=== PATIENT | female | born 1955 | race Caucasian/White ===

== ENCOUNTER 2023-12-21 14:56 | Inpatient (IN) | payer MEDICARE ==
[2023-12-21 17:11] LABS: BASE EXCESS VENOUS 0.6 (-2.0-3.0); BICARBONATE,VENOUS 25 mEQ/mL (22-28); PCO2 VENOUS 38 mmHG (41-51); PH,VENOUS 7.43 (7.31-7.41)
[2023-12-21 17:14] LABS: BASOPHILS ABSOLUTE AUTO 0.04 K/uL (0.00-0.20); BASOPHILS PERCENT AUTO 0.3 % (0.0-1.0); EOSINOPHILS ABSOLUTE AUTO 0.01 K/uL (0.00-0.45); EOSINOPHILS PERCENT AUTO 0.1 % (0.0-6.0); HEMATOCRIT 32.6 % (37.0-47.0); HEMOGLOBIN 11.7 g/dL (12.0-16.0); IMMATURE GRAN ABSOLUTE AUTO 0.12 K/uL (0.00-0.05); IMMATURE GRAN PERCENT AUTO 0.8 % (0.0-0.4); LYMPHOCYTES ABSOLUTE AUTO 1.42 K/uL (1.00-4.80); LYMPHOCYTES PERCENT AUTO 9.3 % (24.0-44.0); MEAN CORPUSCULAR HGB CONC 35.9 g/dL (32.0-36.0); MEAN CORPUSCULAR VOLUME 86.5 fL (83.0-99.0); MONOCYTES ABSOLUTE AUTO 0.92 K/uL (0.00-0.80); NEUTROPHILS ABSOLUTE AUTO 12.77 K/uL (1.80-7.70); NEUTROPHILS PERCENT AUTO 83.5 % (41.0-71.0); PLATELET COUNT,PLT 224 K/uL (150-400); RED BLOOD CELL COUNT 3.77 M/uL (4.10-5.30); WHITE BLOOD CELL COUNT,WBC 15.28 K/uL (3.9-11.3)
[2023-12-21 17:16] LABS: PO2 VENOUS < 30 mmHG (35-45)
[2023-12-21 17:39] LABS: INR 1.1 (0.86-1.11)
[2023-12-21] MEDS: Sodium Chloride 0.9% 1,000 ML IV ONE ×4 (17:44→23:30)
[2023-12-21] MEDS: cefTRIAXone 1 GM in Sodium Chloride 0.9% 50 ML IV ONE (17:44)
[2023-12-21 17:50] LABS: LACTIC ACID 3.2 mmol/L (0.4-2.0)
[2023-12-21 18:04] LABS: A/G RATIO 0.8 (0.9-1.6); ALANINE AMINOTRANSFERASE,ALT 25 IU/L (14-63); ALBUMIN 3.3 g/dL (3.4-5.0); ALKALINE PHOSPHATASE 84 U/L (46-116); ASPARTATE AMNIOTRANSFERASE,AST 20 IU/L (15-37); BILIRUBIN TOTAL 0.9 mg/dL (0.2-1.0); BLOOD UREA NITROGEN,BUN 32 mg/dL (7.0-18.0); CALCIUM 8.4 mg/dL (8.5-10.1); CARBON DIOXIDE,CO2 25.8 mmol/L (21.0-32.0); CHLORIDE,CL 87 mmol/L (98-107); CREATININE 2.4 mg/dL (0.6-1.0); EST CRCL DRUG DOSING (CG) 19.07 mL/min; GLUCOSE RANDOM 167 mg/dL (74-106); LIPASE 19 U/L (16-77); MAGNESIUM 1.3 mg/dL (1.8-2.4); POTASSIUM,K 3.2 mmol/L (3.5-5.1); PROTEIN TOTAL,TP 7.5 g/dL (6.4-8.2); SODIUM,NA 125 mmol/L (136-145); TSH ULTRASENSITIVE 1.24 uIU/mL (0.36-3.74)
[2023-12-21] MEDS: Lidocaine 1% 2 ML ONE (18:07)
[2023-12-21 18:09] LABS: ESTIMATED GFR 22 mL/min (>60)
[2023-12-21] MEDS: Lactated Ringers 1,000 ML IV STA (18:09)
[2023-12-21] MEDS: Sodium Chloride 0.9% 2.5 ML Syringe FLUSH PRN ×2 (19:22→19:23)
[2023-12-21] MEDS: Sodium Chloride 0.9% 10 ML Syringe FLUSH PRN ×2 (19:22→19:23)
[2023-12-21] MEDS ORDERED: Glucagon,Human Recombinant 1 MG Vial IM PRN (21:44)
[2023-12-21] MEDS ORDERED: 50% Dextrose in Water 50 ML Syringe IVPUSH PRN (21:44)
[2023-12-21] MEDS ORDERED: Cyclobenzaprine 5 MG Tab PO PRN (21:53)
[2023-12-21] MEDS: Sodium Chloride 0.9% 1,000 ML IV SCH (22:08)
[2023-12-21] MEDS: Acetaminophen 650 MG in Premix Bag 1 BAG IV ONE (22:24)
[2023-12-21] MEDS ORDERED: Magnesium Sulfate/Water 2 GM/50 ML Premix Bag IV ONE (22:29)
[2023-12-21] MEDS: Cefepime 2 GM in Sodium Chloride 0.9% 50 ML IV SCH (22:30)
[2023-12-21] MEDS ORDERED: Cefepime 1 GM in Sodium Chloride 0.9% 50 ML IV SCH (22:39)
[2023-12-21] MEDS: VANCOmycin 2 GM/400 ML 2 GM in Premix Bag 1 BAG IV ONE (22:56)
[2023-12-21 23:04] LABS: HEMATOCRIT 30.1 % (37.0-47.0); MEAN CORPUSCULAR HEMOGLOBIN 31.2 pg (28.0-32.0); MEAN CORPUSCULAR HGB CONC 36.5 g/dL (32.0-36.0); MEAN CORPUSCULAR VOLUME 85.3 fL (83.0-99.0); MEAN PLATELET VOLUME 9.3 fL (9.4-12.3); PLATELET COUNT,PLT 173 K/uL (150-400); RED BLOOD CELL COUNT 3.53 M/uL (4.10-5.30); WHITE BLOOD CELL COUNT,WBC 5.22 K/uL (3.9-11.3)
[2023-12-21] MEDS: Cefepime 1 GM in Sodium Chloride 0.9% 50 ML IV SCH (23:04)
[2023-12-21 23:22] LABS: CALCIUM 7.3 mg/dL (8.5-10.1); CARBON DIOXIDE,CO2 18.4 mmol/L (21.0-32.0); CREATININE 2.1 mg/dL (0.6-1.0); EST CRCL DRUG DOSING (CG) 21.8 mL/min; POTASSIUM,K 2.8 mmol/L (3.5-5.1)
[2023-12-21 23:31] LABS: BAND ABSOLUTE MAN 0.73; BAND PERCENT MAN 14 %; LYMPHOCYTES ABSOLUTE MAN 0.73 K/uL (1.00-4.80); LYMPHOCYTES PERCENT MAN 14 % (24-44); MONOCYTES ABSOLUTE MAN 0.16 K/uL (0.00-0.80); MONOCYTES PERCENT MAN 3 % (0-8); SEG NEUTROPHILS PERCENT MAN 69 % (41-71)
[2023-12-22] MEDS: Insulin Glargine,Hum.Rec.Anlog 100 UNIT/ML 3 ML Pen SUBCUT SCH (00:04)
[2023-12-22] MEDS: Sodium Chloride 0.9% 500 ML IV SCH (01:17)
[2023-12-22] MEDS: Potassium Chloride 20 MEQ Tab.ER PO ONE ×2 (01:19→09:19)
[2023-12-22] MEDS: Heparin Sodium 5,000 Units/ML Vial SUBCUT SCH (01:20)
[2023-12-22] MEDS: NS with KCl 40mEq 1,000 ML IV SCH (01:52)
[2023-12-22] MEDS: Magnesium Sulfate/Water 2 GM in Premix Bag 1 BAG IV ONE ×2 (02:28→09:19)
[2023-12-22 05:51] LABS: HEMATOCRIT 27.6 % (37.0-47.0); MEAN CORPUSCULAR HEMOGLOBIN 31.6 pg (28.0-32.0); MEAN CORPUSCULAR HGB CONC 36.2 g/dL (32.0-36.0); MEAN CORPUSCULAR VOLUME 87.3 fL (83.0-99.0); MEAN PLATELET VOLUME 9.7 fL (9.4-12.3); PLATELET COUNT,PLT 176 K/uL (150-400); RED BLOOD CELL COUNT 3.16 M/uL (4.10-5.30); WHITE BLOOD CELL COUNT,WBC 15.53 K/uL (3.9-11.3)
[2023-12-22 06:11] LABS: CALCIUM 6.8 mg/dL (8.5-10.1); CARBON DIOXIDE,CO2 17.7 mmol/L (21.0-32.0); CREATININE 1.9 mg/dL (0.6-1.0); EST CRCL DRUG DOSING (CG) 24.09 mL/min; MAGNESIUM 1.6 mg/dL (1.8-2.4); POTASSIUM,K 3.1 mmol/L (3.5-5.1)
[2023-12-22 06:52] LABS: BAND ABSOLUTE MAN 1.55; BAND PERCENT MAN 10 %; LYMPHOCYTES ABSOLUTE MAN 1.09 K/uL (1.00-4.80); LYMPHOCYTES PERCENT MAN 7 % (24-44); MONOCYTES ABSOLUTE MAN 1.09 K/uL (0.00-0.80); MONOCYTES PERCENT MAN 7 % (0-8); SEG NEUTROPHILS PERCENT MAN 76 % (41-71)
[2023-12-22] MEDS: Insulin Aspart 100 Units/ML 3 ML Pen SUBCUT SCH ×2 (07:54→16:43)
[2023-12-22] MEDS ORDERED: 50% Dextrose in Water 50 ML Syringe IVPUSH PRN ×3 (12:30→12:44)
[2023-12-22] MEDS ORDERED: Glucagon,Human Recombinant 1 MG Vial IM PRN ×3 (12:30→12:44)
[2023-12-22] MEDS: Insulin Aspart 100 Units/ML 3 ML Pen SUBCUT STA (13:10)
[2023-12-22] MEDS: Insulin Aspart 100 Units/ML 3 ML Pen SUBCUT ONE (13:11)
[2023-12-22] MEDS ORDERED: cefTRIAXone 1 GM in Sodium Chloride 0.9% 50 ML IV SCH (16:00)
[2023-12-22] MEDS: Acetaminophen 325 MG Tab PO PRN (16:44)
[2023-12-22] MEDS: Cyclobenzaprine 5 MG Tab PO PRN (16:45)
[2023-12-22 18:47] LABS: LACTIC ACID 3.6 mmol/L (0.4-2.0)
[2023-12-22] MEDS: Sodium Chloride 0.9% 1,000 ML IV ONE (19:51)
[2023-12-22] MEDS: Sodium Chloride 0.9% 1,000 ML IV SCH (20:57)
[2023-12-22] MEDS: oxyCODONE 5 MG Tab PO PRN (21:50)
[2023-12-23 00:09] LABS: CALCIUM 7.4 mg/dL (8.5-10.1); CARBON DIOXIDE,CO2 16.7 mmol/L (21.0-32.0); CREATININE 1.3 mg/dL (0.6-1.0); EST CRCL DRUG DOSING (CG) 35.21 mL/min; POTASSIUM,K 3.2 mmol/L (3.5-5.1)
[2023-12-23 00:34] LABS: LACTIC ACID 1.9 mmol/L (0.4-2.0)
[2023-12-23 04:55] LABS: CALCIUM 6.9 mg/dL (8.5-10.1); CARBON DIOXIDE,CO2 18.4 mmol/L (21.0-32.0); CREATININE 1.3 mg/dL (0.6-1.0); EST CRCL DRUG DOSING (CG) 35.21 mL/min; POTASSIUM,K 3.1 mmol/L (3.5-5.1)
[2023-12-23] MEDS: Acetaminophen 325 MG Tab PO PRN (06:21)
[2023-12-23] MEDS ORDERED: Albuterol/Ipratropium 3.0-0.5 MG/3 ML Neb Soln NEB PRN (07:27)
[2023-12-23 07:30] LABS: HEMOGLOBIN 9.6 g/dL (12.0-16.0); MEAN CORPUSCULAR HEMOGLOBIN 31.6 pg (28.0-32.0); MEAN CORPUSCULAR HGB CONC 35.6 g/dL (32.0-36.0); MEAN CORPUSCULAR VOLUME 88.8 fL (83.0-99.0); MEAN PLATELET VOLUME 9.9 fL (9.4-12.3); PLATELET COUNT,PLT 160 K/uL (150-400); RED BLOOD CELL COUNT 3.04 M/uL (4.10-5.30); WHITE BLOOD CELL COUNT,WBC 7.82 K/uL (3.9-11.3)
[2023-12-23 07:56] LABS: BASOPHILS ABSOLUTE MAN 0.08 K/uL (0.00-0.20); BASOPHILS PERCENT MAN 1 % (0-1); LYMPHOCYTES ABSOLUTE MAN 1.49 K/uL (1.00-4.80); LYMPHOCYTES PERCENT MAN 19 % (24-44); MONOCYTES ABSOLUTE MAN 0.39 K/uL (0.00-0.80); MONOCYTES PERCENT MAN 5 % (0-8); SEG NEUTROPHILS ABSOLUTE MAN 5.87 K/uL (1.80-7.70); SEG NEUTROPHILS PERCENT MAN 75 % (41-71)
[2023-12-23] MEDS: Potassium Chloride 20 MEQ Tab.ER PO ONE (08:23)
[2023-12-23] MEDS: Albuterol/Ipratropium 3.0-0.5 MG/3 ML Neb Soln NEB SCH (10:02)
[2023-12-23] MEDS: Insulin Aspart 100 Units/ML 3 ML Pen SUBCUT SCH (10:40)
[2023-12-23 17:20] LABS: CALCIUM 7.4 mg/dL (8.5-10.1); CREATININE 1.3 mg/dL (0.6-1.0); EST CRCL DRUG DOSING (CG) 35.21 mL/min; POTASSIUM,K 3.1 mmol/L (3.5-5.1)
[2023-12-23] MEDS ORDERED: Dextrose 5%-0.9% NaCl 1,000 ML IV SCH (20:15)
[2023-12-23 20:38] LABS: LACTIC ACID 3.8 mmol/L (0.4-2.0)
[2023-12-23] MEDS: Insulin Regular in 0.9 % NACL 100 ML IV SCH (20:59)
[2023-12-23] MEDS: Potassium Chloride 10% 20 MEQ/15 ML Soln 15 ML UD Cup PO ONE (21:44)
[2023-12-23] MEDS: Lactated Ringers 500 ML IV SCH (21:57)
[2023-12-23] MEDS: D5 1/2 NS w/ 40 mEq/L KCl 1,000 ML IV SCH (22:44)
[2023-12-23] MEDS: Labetalol 100 MG/20 ML MDV IVPUSH PRN (23:12)
[2023-12-23 23:37] LABS: CALCIUM 7.9 mg/dL (8.5-10.1); CARBON DIOXIDE,CO2 20.6 mmol/L (21.0-32.0); CREATININE 1.2 mg/dL (0.6-1.0); EST CRCL DRUG DOSING (CG) 38.15 mL/min; POTASSIUM,K 3.6 mmol/L (3.5-5.1)
[2023-12-24] MEDS ORDERED: LORazepam 1 MG Tab PO PRN (04:46)
[2023-12-24] MEDS ORDERED: LORazepam 1 MG Tab PO SCH ×2 (05:00)
[2023-12-24 05:43] LABS: BASE EXCESS VENOUS -4.1 (-2.0-3.0); PH,VENOUS 7.44 (7.31-7.41)
[2023-12-24 05:45] LABS: BASOPHILS ABSOLUTE AUTO 0.04 K/uL (0.00-0.20); BASOPHILS PERCENT AUTO 0.6 % (0.0-1.0); EOSINOPHILS ABSOLUTE AUTO 0.02 K/uL (0.00-0.45); EOSINOPHILS PERCENT AUTO 0.3 % (0.0-6.0); HEMATOCRIT 25.6 % (37.0-47.0); HEMOGLOBIN 9.2 g/dL (12.0-16.0); IMMATURE GRAN ABSOLUTE AUTO 0.13 K/uL (0.00-0.05); IMMATURE GRAN PERCENT AUTO 1.8 % (0.0-0.4); LYMPHOCYTES ABSOLUTE AUTO 1.58 K/uL (1.00-4.80); LYMPHOCYTES PERCENT AUTO 21.9 % (24.0-44.0); MEAN CORPUSCULAR HEMOGLOBIN 30.9 pg (28.0-32.0); MEAN CORPUSCULAR HGB CONC 35.9 g/dL (32.0-36.0); MEAN CORPUSCULAR VOLUME 85.9 fL (83.0-99.0); MEAN PLATELET VOLUME 9.1 fL (9.4-12.3); MONOCYTES ABSOLUTE AUTO 0.57 K/uL (0.00-0.80); MONOCYTES PERCENT AUTO 7.9 % (0.0-8.0); NEUTROPHILS ABSOLUTE AUTO 4.87 K/uL (1.80-7.70); NEUTROPHILS PERCENT AUTO 67.5 % (41.0-71.0); PLATELET COUNT,PLT 167 K/uL (150-400); RED BLOOD CELL COUNT 2.98 M/uL (4.10-5.30); WHITE BLOOD CELL COUNT,WBC 7.21 K/uL (3.9-11.3)
[2023-12-24 06:17] LABS: A/G RATIO 0.6 (0.9-1.6); ALBUMIN 2.1 g/dL (3.4-5.0); BILIRUBIN TOTAL 0.4 mg/dL (0.2-1.0); CALCIUM 7.7 mg/dL (8.5-10.1); CARBON DIOXIDE,CO2 19.8 mmol/L (21.0-32.0); CREATININE 1.1 mg/dL (0.6-1.0); EST CRCL DRUG DOSING (CG) 41.62 mL/min; POTASSIUM,K 3.5 mmol/L (3.5-5.1); PROTEIN TOTAL,TP 5.9 g/dL (6.4-8.2)
[2023-12-24 11:49] LABS: CALCIUM 7.9 mg/dL (8.5-10.1); CARBON DIOXIDE,CO2 22.6 mmol/L (21.0-32.0); CREATININE 1.1 mg/dL (0.6-1.0); EST CRCL DRUG DOSING (CG) 41.62 mL/min
[2023-12-24] MEDS: Lactated Ringers 500 ML IV SCH (13:09)
[2023-12-24] MEDS: Thiamine 200 MG in Sodium Chloride 0.9% 100 ML IV SCH (13:41)
[2023-12-24] MEDS: Benzocaine/Cetylpyridinium/Menthol Lozenge MUCMEM PRN (16:20)
[2023-12-24 17:46] LABS: CALCIUM 8.3 mg/dL (8.5-10.1); CARBON DIOXIDE,CO2 21.3 mmol/L (21.0-32.0); CREATININE 1.1 mg/dL (0.6-1.0); EST CRCL DRUG DOSING (CG) 41.62 mL/min; POTASSIUM,K 3.9 mmol/L (3.5-5.1)
[2023-12-24] MEDS: Magnesium Sulfate/Water 4 GM in Premix Bag 1 BAG IV ONE (18:48)
[2023-12-24 23:17] LABS: CALCIUM 7.9 mg/dL (8.5-10.1); CARBON DIOXIDE,CO2 23.2 mmol/L (21.0-32.0); EST CRCL DRUG DOSING (CG) 45.78 mL/min; POTASSIUM,K 4.2 mmol/L (3.5-5.1)
[2023-12-24 23:26] LABS: LACTIC ACID 2.8 mmol/L (0.4-2.0)
[2023-12-24] MEDS: VANCOmycin 1.5 GM/300 ML 1.5 GM in Premix Bag 1 BAG IV SCH (23:42)
[2023-12-25] MEDS ORDERED: Glucagon,Human Recombinant 1 MG Vial IM PRN (01:58)
[2023-12-25] MEDS ORDERED: 50% Dextrose in Water 50 ML Syringe IVPUSH PRN (01:58)
[2023-12-25] MEDS: Insulin Glargine,Hum.Rec.Anlog 100 UNIT/ML 3 ML Pen SUBCUT SCH (02:25)
[2023-12-25 03:11] LABS: LACTIC ACID 3.2 mmol/L (0.4-2.0)
[2023-12-25] MEDS: Lactated Ringers 1,000 ML IV SCH (03:39)
[2023-12-25 07:21] LABS: BASOPHILS ABSOLUTE AUTO 0.05 K/uL (0.00-0.20); BASOPHILS PERCENT AUTO 0.5 % (0.0-1.0); EOSINOPHILS ABSOLUTE AUTO 0.09 K/uL (0.00-0.45); EOSINOPHILS PERCENT AUTO 0.9 % (0.0-6.0); HEMATOCRIT 26.4 % (37.0-47.0); HEMOGLOBIN 9.3 g/dL (12.0-16.0); IMMATURE GRAN ABSOLUTE AUTO 0.21 K/uL (0.00-0.05); LYMPHOCYTES ABSOLUTE AUTO 1.88 K/uL (1.00-4.80); LYMPHOCYTES PERCENT AUTO 18.2 % (24.0-44.0); MEAN CORPUSCULAR HEMOGLOBIN 30.4 pg (28.0-32.0); MEAN CORPUSCULAR HGB CONC 35.2 g/dL (32.0-36.0); MEAN CORPUSCULAR VOLUME 86.3 fL (83.0-99.0); MEAN PLATELET VOLUME 9.9 fL (9.4-12.3); MONOCYTES ABSOLUTE AUTO 1.24 K/uL (0.00-0.80); NEUTROPHILS ABSOLUTE AUTO 6.88 K/uL (1.80-7.70); NEUTROPHILS PERCENT AUTO 66.4 % (41.0-71.0); PLATELET COUNT,PLT 182 K/uL (150-400); RED BLOOD CELL COUNT 3.06 M/uL (4.10-5.30); WHITE BLOOD CELL COUNT,WBC 10.35 K/uL (3.9-11.3)
[2023-12-25] MEDS: Insulin Aspart 100 Units/ML 3 ML Pen SUBCUT SCH (07:40)
[2023-12-25 07:44] LABS: A/G RATIO 0.5 (0.9-1.6); ALBUMIN 2.2 g/dL (3.4-5.0); BILIRUBIN TOTAL 0.8 mg/dL (0.2-1.0); CALCIUM 8.4 mg/dL (8.5-10.1); CARBON DIOXIDE,CO2 19.8 mmol/L (21.0-32.0); EST CRCL DRUG DOSING (CG) 45.78 mL/min; POTASSIUM,K 4.2 mmol/L (3.5-5.1); PROTEIN TOTAL,TP 6.3 g/dL (6.4-8.2)
[2023-12-25 07:51] LABS: LACTIC ACID 1.5 mmol/L (0.4-2.0)
[2023-12-25] MEDS ORDERED: Insulin Regular in 0.9 % NACL 100 ML IV SCH (08:00)
[2023-12-25] MEDS: Dextrose 5%-Lactated Ringers 1,000 ML IV SCH (09:38)
[2023-12-25] MEDS: Insulin Regular in 0.9 % NACL 100 ML IV SCH (09:50)
[2023-12-25 10:51] LABS: CALCIUM 8.2 mg/dL (8.5-10.1); CARBON DIOXIDE,CO2 21.6 mmol/L (21.0-32.0); CREATININE 1.1 mg/dL (0.6-1.0); EST CRCL DRUG DOSING (CG) 41.62 mL/min; POTASSIUM,K 3.7 mmol/L (3.5-5.1)
[2023-12-25 14:40] LABS: CALCIUM 8.2 mg/dL (8.5-10.1); CREATININE 1.2 mg/dL (0.6-1.0); EST CRCL DRUG DOSING (CG) 38.15 mL/min; POTASSIUM,K 3.8 mmol/L (3.5-5.1)
[2023-12-25 18:59] LABS: CALCIUM 9.1 mg/dL (8.5-10.1); CARBON DIOXIDE,CO2 25.7 mmol/L (21.0-32.0); CREATININE 1.1 mg/dL (0.6-1.0); EST CRCL DRUG DOSING (CG) 41.62 mL/min; POTASSIUM,K 3.6 mmol/L (3.5-5.1)
[2023-12-25 23:02] LABS: CALCIUM 8.5 mg/dL (8.5-10.1); CARBON DIOXIDE,CO2 23.4 mmol/L (21.0-32.0); CREATININE 1.1 mg/dL (0.6-1.0); EST CRCL DRUG DOSING (CG) 41.62 mL/min; POTASSIUM,K 3.3 mmol/L (3.5-5.1)
[2023-12-25] MEDS: Potassium Chloride 10 MEQ in Premix Bag 1 BAG IV SCH (23:52)
[2023-12-26] MEDS: Potassium Chloride 20 MEQ Tab.ER PO ONE (00:05)
[2023-12-26 02:33] LABS: CALCIUM 8.7 mg/dL (8.5-10.1); CARBON DIOXIDE,CO2 24.6 mmol/L (21.0-32.0); EST CRCL DRUG DOSING (CG) 45.78 mL/min; POTASSIUM,K 3.6 mmol/L (3.5-5.1)
[2023-12-26 07:02] LABS: BASOPHILS ABSOLUTE AUTO 0.05 K/uL (0.00-0.20); BASOPHILS PERCENT AUTO 0.6 % (0.0-1.0); EOSINOPHILS ABSOLUTE AUTO 0.24 K/uL (0.00-0.45); EOSINOPHILS PERCENT AUTO 2.8 % (0.0-6.0); HEMOGLOBIN 9.6 g/dL (12.0-16.0); IMMATURE GRAN ABSOLUTE AUTO 0.38 K/uL (0.00-0.05); IMMATURE GRAN PERCENT AUTO 4.4 % (0.0-0.4); LYMPHOCYTES ABSOLUTE AUTO 2.12 K/uL (1.00-4.80); LYMPHOCYTES PERCENT AUTO 24.4 % (24.0-44.0); MEAN CORPUSCULAR HEMOGLOBIN 31.1 pg (28.0-32.0); MEAN CORPUSCULAR HGB CONC 34.3 g/dL (32.0-36.0); MEAN CORPUSCULAR VOLUME 90.6 fL (83.0-99.0); MEAN PLATELET VOLUME 9.7 fL (9.4-12.3); MONOCYTES ABSOLUTE AUTO 0.89 K/uL (0.00-0.80); MONOCYTES PERCENT AUTO 10.2 % (0.0-8.0); NEUTROPHILS ABSOLUTE AUTO 5.01 K/uL (1.80-7.70); NEUTROPHILS PERCENT AUTO 57.6 % (41.0-71.0); PLATELET COUNT,PLT 215 K/uL (150-400); RED BLOOD CELL COUNT 3.09 M/uL (4.10-5.30); WHITE BLOOD CELL COUNT,WBC 8.69 K/uL (3.9-11.3)
[2023-12-26 07:25] LABS: A/G RATIO 0.6 (0.9-1.6); ALBUMIN 2.3 g/dL (3.4-5.0); BILIRUBIN TOTAL 0.6 mg/dL (0.2-1.0); CALCIUM 8.3 mg/dL (8.5-10.1); CREATININE 1.1 mg/dL (0.6-1.0); EST CRCL DRUG DOSING (CG) 41.62 mL/min; POTASSIUM,K 4.5 mmol/L (3.5-5.1); PROTEIN TOTAL,TP 6.3 g/dL (6.4-8.2)
[2023-12-26] MEDS: Dextrose 5%-Lactated Ringers 1,000 ML IV SCH (09:10)
[2023-12-26 11:09] LABS: CALCIUM 8.6 mg/dL (8.5-10.1); CREATININE 1.2 mg/dL (0.6-1.0); EST CRCL DRUG DOSING (CG) 38.15 mL/min
[2023-12-26 14:41] LABS: CALCIUM 8.6 mg/dL (8.5-10.1); CARBON DIOXIDE,CO2 25.3 mmol/L (21.0-32.0); EST CRCL DRUG DOSING (CG) 45.78 mL/min; POTASSIUM,K 4.4 mmol/L (3.5-5.1)
[2023-12-26 18:52] LABS: CARBON DIOXIDE,CO2 26.3 mmol/L (21.0-32.0); CREATININE 1.1 mg/dL (0.6-1.0); EST CRCL DRUG DOSING (CG) 41.62 mL/min; POTASSIUM,K 4.2 mmol/L (3.5-5.1)
[2023-12-26 22:49] LABS: CALCIUM 8.9 mg/dL (8.5-10.1); CARBON DIOXIDE,CO2 25.2 mmol/L (21.0-32.0); CREATININE 1.2 mg/dL (0.6-1.0); EST CRCL DRUG DOSING (CG) 38.15 mL/min; POTASSIUM,K 3.4 mmol/L (3.5-5.1)
[2023-12-27 02:49] LABS: CALCIUM 8.1 mg/dL (8.5-10.1); CARBON DIOXIDE,CO2 23.3 mmol/L (21.0-32.0); CREATININE 1.1 mg/dL (0.6-1.0); EST CRCL DRUG DOSING (CG) 41.62 mL/min; POTASSIUM,K 3.7 mmol/L (3.5-5.1)
[2023-12-27 06:14] LABS: HEMATOCRIT 26.9 % (37.0-47.0); HEMOGLOBIN 9.4 g/dL (12.0-16.0); MEAN CORPUSCULAR HEMOGLOBIN 31.5 pg (28.0-32.0); MEAN CORPUSCULAR HGB CONC 34.9 g/dL (32.0-36.0); MEAN CORPUSCULAR VOLUME 90.3 fL (83.0-99.0); MEAN PLATELET VOLUME 9.5 fL (9.4-12.3); NRBC ABSOLUTE 0.02 K/uL (0.00-0.02); NRBC PERCENT 0.2 /100WBC (0.0-0.2); PLATELET COUNT,PLT 263 K/uL (150-400); RED BLOOD CELL COUNT 2.98 M/uL (4.10-5.30); WHITE BLOOD CELL COUNT,WBC 9.13 K/uL (3.9-11.3)
[2023-12-27 06:34] LABS: CALCIUM 8.8 mg/dL (8.5-10.1); CARBON DIOXIDE,CO2 25.2 mmol/L (21.0-32.0); EST CRCL DRUG DOSING (CG) 45.78 mL/min; POTASSIUM,K 3.8 mmol/L (3.5-5.1)
[2023-12-27 06:38] LABS: MAGNESIUM 1.3 mg/dL (1.8-2.4); PHOSPHORUS 4.9 mg/dL (2.6-4.7)
[2023-12-27 07:04] LABS: BAND ABSOLUTE MAN 0.55; BAND PERCENT MAN 6 %; EOSINOPHILS ABSOLUTE MAN 0.37 K/uL (0.00-0.45); EOSINOPHILS PERCENT MAN 4 % (0-6); LYMPHOCYTES PERCENT MAN 23 % (24-44); MONOCYTES ABSOLUTE MAN 0.82 K/uL (0.00-0.80); MONOCYTES PERCENT MAN 9 % (0-8); SEG NEUTROPHILS PERCENT MAN 58 % (41-71)
[2023-12-27] MEDS: Magnesium Sulfate/Water 4 GM in Premix Bag 1 BAG IV ONE (08:41)
[2023-12-27] MEDS ORDERED: 50% Dextrose in Water 50 ML Syringe IVPUSH PRN (10:08)
[2023-12-27] MEDS ORDERED: Glucagon,Human Recombinant 1 MG Vial IM PRN (10:08)
[2023-12-27] MEDS: Insulin Glargine,Hum.Rec.Anlog 100 UNIT/ML 3 ML Pen SUBCUT SCH (10:18)
[2023-12-27 10:41] LABS: CALCIUM 8.9 mg/dL (8.5-10.1); CARBON DIOXIDE,CO2 24.8 mmol/L (21.0-32.0); EST CRCL DRUG DOSING (CG) 45.78 mL/min; POTASSIUM,K 3.8 mmol/L (3.5-5.1)
[2023-12-27] MEDS: Insulin Aspart 100 Units/ML 3 ML Pen SUBCUT SCH ×2 (11:05→11:06)
[2023-12-27 17:09] LABS: CREATININE 1.1 mg/dL (0.6-1.0); EST CRCL DRUG DOSING (CG) 41.62 mL/min
[2023-12-27] MEDS: cefTRIAXone 2 GM in Sodium Chloride 0.9% 50 ML IV SCH (20:56)
[2023-12-28 06:18] LABS: HEMATOCRIT 27.3 % (37.0-47.0); HEMOGLOBIN 9.3 g/dL (12.0-16.0); MEAN CORPUSCULAR HGB CONC 34.1 g/dL (32.0-36.0); MEAN PLATELET VOLUME 9.3 fL (9.4-12.3); NRBC ABSOLUTE 0.02 K/uL (0.00-0.02); NRBC PERCENT 0.2 /100WBC (0.0-0.2); PLATELET COUNT,PLT 336 K/uL (150-400); WHITE BLOOD CELL COUNT,WBC 10.85 K/uL (3.9-11.3)
[2023-12-28 06:39] LABS: BAND ABSOLUTE MAN 0.22; BAND PERCENT MAN 2 %; EOSINOPHILS ABSOLUTE MAN 0.65 K/uL (0.00-0.45); EOSINOPHILS PERCENT MAN 6 % (0-6); LYMPHOCYTES ABSOLUTE MAN 3.04 K/uL (1.00-4.80); LYMPHOCYTES PERCENT MAN 28 % (24-44); MONOCYTES ABSOLUTE MAN 0.54 K/uL (0.00-0.80); MONOCYTES PERCENT MAN 5 % (0-8); SEG NEUTROPHILS PERCENT MAN 59 % (41-71)
[2023-12-28 06:42] LABS: A/G RATIO 0.6 (0.9-1.6); ALBUMIN 2.4 g/dL (3.4-5.0); BILIRUBIN TOTAL 0.6 mg/dL (0.2-1.0); CALCIUM 8.4 mg/dL (8.5-10.1); EST CRCL DRUG DOSING (CG) 45.78 mL/min; MAGNESIUM 1.5 mg/dL (1.8-2.4); POTASSIUM,K 4.2 mmol/L (3.5-5.1); PROTEIN TOTAL,TP 6.7 g/dL (6.4-8.2)
[2023-12-28] MEDS: Losartan 25 MG Tab PO SCH (09:46)
[2023-12-28] MEDS: Magnesium Sulfate/Water 4 GM in Premix Bag 1 BAG IV ONE (09:50)
[2023-12-29 07:03] LABS: HEMATOCRIT 26.6 % (37.0-47.0); HEMOGLOBIN 9.1 g/dL (12.0-16.0); MEAN CORPUSCULAR HEMOGLOBIN 30.7 pg (28.0-32.0); MEAN CORPUSCULAR HGB CONC 34.2 g/dL (32.0-36.0); MEAN CORPUSCULAR VOLUME 89.9 fL (83.0-99.0); MEAN PLATELET VOLUME 9.1 fL (9.4-12.3); PLATELET COUNT,PLT 377 K/uL (150-400); RED BLOOD CELL COUNT 2.96 M/uL (4.10-5.30); WHITE BLOOD CELL COUNT,WBC 11.19 K/uL (3.9-11.3)
[2023-12-29 08:24] LABS: BAND ABSOLUTE MAN 0.67; BAND PERCENT MAN 6 %; BASOPHILS ABSOLUTE MAN 0.11 K/uL (0.00-0.20); BASOPHILS PERCENT MAN 1 % (0-1); EOSINOPHILS ABSOLUTE MAN 0.11 K/uL (0.00-0.45); EOSINOPHILS PERCENT MAN 1 % (0-6); LYMPHOCYTES ABSOLUTE MAN 2.24 K/uL (1.00-4.80); LYMPHOCYTES PERCENT MAN 20 % (24-44); METAMYELOCYTE ABSOLUTE MAN 0.22; METAMYELOCYTE PERCENT MAN 2 %; MONOCYTES ABSOLUTE MAN 0.67 K/uL (0.00-0.80); MONOCYTES PERCENT MAN 6 % (0-8); SEG NEUTROPHILS ABSOLUTE MAN 7.16 K/uL (1.80-7.70); SEG NEUTROPHILS PERCENT MAN 64 % (41-71)
[2023-12-29 12:19] LABS: CALCIUM 8.7 mg/dL (8.5-10.1); CARBON DIOXIDE,CO2 22.9 mmol/L (21.0-32.0); CREATININE 0.9 mg/dL (0.6-1.0); EST CRCL DRUG DOSING (CG) 50.86 mL/min; MAGNESIUM 1.9 mg/dL (1.8-2.4); POTASSIUM,K 3.7 mmol/L (3.5-5.1)
== END 2023-12-29 11:45 | disposition home or self-care (01) | DRG 871 ==
LOC: MW.ED 14:56 → MW.MS 19:24 → MW.ICU 23:25 → MW.MS 12-22 16:12 → MW.ICU 12-23 20:05 → MW.MS 12-28 11:23
PROVIDERS: ADMIT Internal Medicine; ATTEND Internal Medicine
DX: A41.51 Sepsis due to Escherichia coli [E. coli] (principal); E11.9 Type 2 diabetes mellitus without complications; Z75.8 Other problems related to medical facilities and other health care; E11.10 Type 2 diabetes mellitus with ketoacidosis without coma; G93.41 Metabolic encephalopathy; N17.9 Acute kidney failure, unspecified; N10 Acute pyelonephritis; Z16.19 Resistance to other specified beta lactam antibiotics; I10 Essential (primary) hypertension; E87.6 Hypokalemia; E87.8 Other disorders of electrolyte and fluid balance, not elsewhere classified; E11.65 Type 2 diabetes mellitus with hyperglycemia; R65.20 Severe sepsis without septic shock; Z79.4 Long term (current) use of insulin; Z88.2 Allergy status to sulfonamides; Z90.49 Acquired absence of other specified parts of digestive tract; Z79.899 Other long term (current) drug therapy
CPT/HCPCS: 36415; 74176; 80053; 82009; 82140; 82803; 83605; 83690; 83735; 84443; 84484; 85025; 85610; 87040 ×2; 87077; 87186; 93005; 96361; 96365; 99285; J0696; J3490 ×3; J7030 ×2; 36410; 71045; 71045-26; 80048; 80202; 82947; 84100; 87086; 87088; 99223; 99232; 99239; A9270-GY; J0131; J0692; J1644; J1815; J1815-GY; J1921; J3370; J3372; J3411; J3475; J3480; J7040; J7050; J7120; J7121; J7620-GY